=== PATIENT | male | born 1985 | race African-American/Black ===

== ENCOUNTER → 2016-11-05 | Emergency (ER) | payer SELFPAY ==
[~2016-11-05] VITALS: Ht 190.5 cm; Wt 107.0 kg
[~2016-11-05] MED LIST: HYDROmorphone 1 MG/ML (DILAUDID) SYRINGE IM ONE; PROMETHAZINE 25 MG/ML (PHENERGAN) 1 ML VIAL IM ONE
[2016-11-05 12:33] VITALS: BP 165/84
== END | disposition home or self-care (01) ==
LOC: EDUNIT# 12:29 → ED 12:32
DX: S93.491A Sprain of other ligament of right ankle, initial encounter (principal); W50.0XXA Accidental hit or strike by another person, initial encounter; Y93.67 Activity, basketball; Y92.212 Middle school as the place of occurrence of the external cause; Y99.8 Other external cause status
CPT/HCPCS: 73610; 96372; 99283; J1170; J2550; L4350